=== PATIENT | female | born 1975 | race Caucasian/White ===

== ENCOUNTER → 2016-10-30 | Outpatient (CLI) | payer OTHER ==
[~2016-10-30] MED LIST: ACETAMINOPHEN-1 EAC1 PO; ERYTHROMYCIN250 MG PO; LOESTRIN1 EAC1 PO; LORTAB 5 MG/5001 TA1; LORTAB 5 MG/5001 TA1 OR; MEDROLDOSEPACK PO; PRENATAL; PRILOSEC 20 MG20 MG PO; PROTONIX40 M2; SERTRALINE HCL50 MG PO
== END ==
LOC: RAD 02:27
DX: Z12.31 Encounter for screening mammogram for malignant neoplasm of breast (principal)